=== PATIENT | female | born 1980 | race African-American/Black ===

== ENCOUNTER 2016-12-26 18:27 | Emergency (ER) | payer SELFPAY ==
[2016-12-26 20:09] LABS: PLATELET COUNT 239 x10^3mcL (130-400); RED CELL DISTRIBUTION WIDTH 13.3 % (11.5-14.5)
[2016-12-26 20:21] LABS: CALCIUM 8.1 mg/dL (8.5-10.1); CARBON DIOXIDE 23.6 mmol/L (21-32); CHLORIDE SERUM 104 mmol/L (98-107); CREATININE SERUM 0.6 mg/dL (0.6-1.0); GFR1 > 60 mL/min; GLUCOSE SERUM 116 mg/dL (74-106); POTASSIUM SERUM 3.6 mmol/L (3.5-5.1); SODIUM SERUM 138 mmol/L (136-145)
[2016-12-26 20:26] LABS: ALBUMIN 3.2 g/dL (3.4-5.0); ALKALINE PHOSPHATASE 90 U/L (46-116); ALT/SGPT 20 U/L (14-59); AST/SGOT 15 U/L (15-37); BILIRUBIN TOTAL 0.21 mg/dL (0.20-1.00); TOTAL PROTEIN, SERUM 7.1 g/dL (6.4-8.2)
[2016-12-26 20:31] LABS: BAND NEUTROPHIL 2 % (0-10); MONOCYTE 5 % (0-7); SEGMENTED NEUTROPHILS 68 % (37-75); rbc morphology (normal/abnorm) NORMAL (NORMAL)
[2016-12-26 21:39] VITALS: BP 125/79
== END 2016-12-26 21:39 | disposition home or self-care (01) ==
LOC: ED 18:27
PROVIDERS: Emergency Medicine
DX: K92.2 Gastrointestinal hemorrhage, unspecified (principal); Z79.1 Long term (current) use of non-steroidal anti-inflammatories (NSAID); Z79.891 Long term (current) use of opiate analgesic; Z79.899 Other long term (current) drug therapy
CPT/HCPCS: 36415

== ENCOUNTER 2017-01-07 18:34 | Inpatient (IN) | payer MEDICAID ==
[~2017-01-07] VITALS: Ht 160 cm; Wt 81.6 kg
[2017-01-07 20:58] LABS: CALCIUM 8.5 mg/dL (8.5-10.1); CARBON DIOXIDE 26.6 mmol/L (21-32); CHLORIDE SERUM 108 mmol/L (98-107); CREATININE SERUM 0.6 mg/dL (0.6-1.0); GFR1 > 60 mL/min; GLUCOSE SERUM 90 mg/dL (74-106); POTASSIUM SERUM 3.9 mmol/L (3.5-5.1); SODIUM SERUM 145 mmol/L (136-145)
[2017-01-07 21:02] LABS: ALBUMIN 3.4 g/dL (3.4-5.0); ALKALINE PHOSPHATASE 86 U/L (46-116); ALT/SGPT 19 U/L (14-59); AST/SGOT 13 U/L (15-37); TOTAL PROTEIN, SERUM 7.2 g/dL (6.4-8.2)
[2017-01-07 21:06] LABS: BASOPHIL % 0.4 % (0-2); PLATELET COUNT 287 x10^3mcL (130-400); RED CELL DISTRIBUTION WIDTH 12.8 % (11.5-14.5)
[2017-01-07 22:12] VITALS: BP 115/79
[2017-01-07 22:41] LABS: CHOLESTEROL/HDL RATIO 2.8
[2017-01-07 23:02] LABS: FREE T4 1.08 ng/dL (0.76-1.46); T4(THYROXINE) 9.1 ug/dL (4.7-13.3)
[2017-01-08 05:50] LABS: BASOPHIL % 0.4 % (0-2); PLATELET COUNT 249 x10^3mcL (130-400); RED CELL DISTRIBUTION WIDTH 13.3 % (11.5-14.5)
[2017-01-08 06:08] LABS: CALCIUM 7.7 mg/dL (8.5-10.1); CARBON DIOXIDE 25.8 mmol/L (21-32); CHLORIDE SERUM 112 mmol/L (98-107); CREATININE SERUM 0.6 mg/dL (0.6-1.0); GFR1 > 60 mL/min; GLUCOSE SERUM 92 mg/dL (74-106); PHOSPHOROUS 2.8 mg/dL (2.5-4.9); POTASSIUM SERUM 3.9 mmol/L (3.5-5.1); SODIUM SERUM 146 mmol/L (136-145)
[2017-01-08 06:11] VITALS: BP 97/55
[2017-01-08 09:36] VITALS: BP 116/76
[2017-01-08 14:42] LABS: T3 TOTAL 1.14 ng/mL
[2017-01-08 17:15] VITALS: BP 128/75
[2017-01-08 21:52] VITALS: BP 118/70
[2017-01-09 06:01] VITALS: BP 106/55
[2017-01-09 07:51] LABS: BASOPHIL % 0.4 % (0-2); PLATELET COUNT 246 x10^3mcL (130-400); RED CELL DISTRIBUTION WIDTH 12.9 % (11.5-14.5)
[2017-01-09 08:23] LABS: CALCIUM 7.9 mg/dL (8.5-10.1); CARBON DIOXIDE 25.7 mmol/L (21-32); CHLORIDE SERUM 110 mmol/L (98-107); CREATININE SERUM 0.6 mg/dL (0.6-1.0); GFR1 > 60 mL/min; GLUCOSE SERUM 80 mg/dL (74-106); MAGNESIUM 2.1 mg/dL (1.8-2.4); PHOSPHOROUS 2.4 mg/dL (2.5-4.9); POTASSIUM SERUM 3.9 mmol/L (3.5-5.1); SODIUM SERUM 143 mmol/L (136-145)
[2017-01-09 10:14] VITALS: BP 104/64
[2017-01-09] MEDS ORDERED: OSCD PO (10:39)
[2017-01-09] MEDS ORDERED: ANUHCS PR (10:42)
[2017-01-09] MEDS ORDERED: ASA400 PO (10:43)
[2017-01-09] MEDS ORDERED: FLA250 PO (10:47)
[2017-01-09] MEDS ORDERED: LEVOFLOXACIN500 M1 PO (10:47)
[2017-01-09 11:23] VITALS: BP 104/64
== END 2017-01-09 13:00 | disposition home or self-care (01) | DRG 245 ==
LOC: ED 18:34 → DU 20:00 → MU 01-08 13:29
PROVIDERS: Emergency Medicine; Internal Medicine Gastroenterology; ADMIT Family Medicine
PROC: 0DBG8ZX Excision of Left Large Intestine, Via Natural or Artificial Opening Endoscopic, Diagnostic (ICD-10-PCS; 2017-01-08)
PROC: 0DBL8ZX Excision of Transverse Colon, Via Natural or Artificial Opening Endoscopic, Diagnostic (ICD-10-PCS; 2017-01-08)
PROC: 0DBN8ZX Excision of Sigmoid Colon, Via Natural or Artificial Opening Endoscopic, Diagnostic (ICD-10-PCS; 2017-01-08)
PROC: 0DBP8ZX Excision of Rectum, Via Natural or Artificial Opening Endoscopic, Diagnostic (ICD-10-PCS; 2017-01-08)
PROC: 0DBF8ZX Excision of Right Large Intestine, Via Natural or Artificial Opening Endoscopic, Diagnostic (ICD-10-PCS; 2017-01-08)
PROC: 0DBH8ZX Excision of Cecum, Via Natural or Artificial Opening Endoscopic, Diagnostic (ICD-10-PCS; principal; 2017-01-08 15:00)
DX: K51.911 Ulcerative colitis, unspecified with rectal bleeding (principal); E87.0 Hyperosmolality and hypernatremia; E83.51 Hypocalcemia; E83.39 Other disorders of phosphorus metabolism; R73.03 Prediabetes; D64.9 Anemia, unspecified; E66.9 Obesity, unspecified; Z68.31 Body mass index [BMI] 31.0-31.9, adult
CPT/HCPCS: 45378; 82962; 84439; 87046; 87046-59; J1200; J1610; J2250; J2310; J2765; J3010; J3490; J7030